=== PATIENT | male | born 1985 | race Caucasian/White ===

== ENCOUNTER 2021-09-27 22:45 | Emergency (ER) | payer OTHER ==
[~2021-09-27] VITALS: Ht 188 cm; Wt 74.8 kg
[2021-09-28 02:00] LABS: ABSOLUTE EOSINOPHILS 0.2 thou/uL (0.0-0.7); ABSOLUTE LYMPHOCYTES 1.3 thou/uL (0.8-5.3); ABSOLUTE MONOCYTES 0.5 thou/uL (0.0-1.2); ABSOLUTE NEUTROPHILS 2.9 thou/uL (1.6-8.1); BASOPHILS 0.9 %; EOSINOPHILS 3.8 %; HEMATOCRIT 43.4 % (42.0-52.0); HEMOGLOBIN 14.4 gm/dL (14.0-18.0); LYMPHOCYTES 26.6 %; MCH 30.7 pg (26.0-34.0); MCHC 33.2 g/dL (28.0-37.0); MCV 92.5 fL (80.0-100.0); MONOCYTES 9.9 %; NUCLEATED RBCS 0 /100WBC; PLATELET COUNT* 183 thou/uL (150-400); POLYS 58.8 %; RBC 4.69 mil/uL (4.50-6.00); WBC 4.9 thou/uL (4.0-11.0)
[2021-09-28 02:10] LABS: INFLUENZA A ANTIGEN Negative (Negative); INFLUENZA B ANTIGEN Negative (Negative)
[2021-09-28 02:13] LABS: CALCIUM 8.2 mg/dL (8.5-10.1); CREATININE 0.8 mg/dL (0.6-1.3); POTASSIUM 3.4 mmol/L (3.5-5.1)
[2021-09-28 02:17] LABS: ALBUMIN 3.6 g/dL (3.4-5.0); TOTAL BILIRUBIN 0.3 mg/dL (<0.1-1.0)
[2021-09-28 03:46] LABS: AMP/METHAMP POSITIVE (Negative); BARBITURATES Negative (Negative); BENZODIAZEPINES POSITIVE (Negative); COCAINE Negative (Negative); METHADONE Negative (Negative); OPIATES Negative (Negative); PCP Negative (Negative); THC POSITIVE (Negative)
[2021-09-28 08:37] VITALS: BP 130/98
--- NOTE | 2021-09-30 09:12 | EKG ---
[place] [address] ELECTROCARDIOGRAM REPORT Name: YANN WATSON Room: [facility]#: [id number] Admission: 09/27/21 Attend Phys: Discharge: 09/28/21 Date of : 87 Date of Service: 09/27/212257 Report #: [id number] THIS REPORT FOR: //name// [facility] ED Test Date: 2021-09-27 Test Time: 22:58:32 Pat Name: YANN WATSON Department: Room: Gender: [employer]: [place] : 1985 Requested By: Fred Lieberman Order Number: [id number] Inna MD: Eleazar Tarango Measurements Intervals [place] Rate: 102 P: [place]: QRS: 66 QRSD: 86 T: 32 QT: 349 QTc: 455 Interpretive Statements Sinus tachycardia No previous ECG available for comparison Electronically Signed On 09-30-2021 9:11:57 [employer] by Eleazar Tarango [email or web address] <ELECTRONICALLY SIGNED> By: Eleazar Tarango MD, [facility] 09/30/21 0911 2258 Eleazar Tarango MD, [facility] /EPI
== END 2021-09-28 08:38 | disposition home or self-care (01) ==
LOC: M.ERS 22:45
PROVIDERS: Emergency Medicine
DX: R07.89 Other chest pain (principal); Z20.822 Contact with and (suspected) exposure to COVID-19; R53.83 Other fatigue; R06.02 Shortness of breath; F98.8 Other specified behavioral and emotional disorders with onset usually occurring in childhood and adolescence; Z59.00 Homelessness unspecified; Z88.2 Allergy status to sulfonamides